=== PATIENT | female | born 1940 | race Caucasian/White ===

== ENCOUNTER 2018-04-16 13:41 | Outpatient (CLI) | payer MEDICARE, BC, SELFPAY | END 2018-04-16 13:42 | PROVIDERS: PCP Family Medicine; Visit Provider Anesthesiology Pain Medicine | DX: M96.1 Postlaminectomy syndrome, not elsewhere classified (principal); G89.29 Other chronic pain; M54.5 Low back pain; Z96.89 Presence of other specified functional implants; Z79.891 Long term (current) use of opiate analgesic; Z93.3 Colostomy status | CPT/HCPCS: 62368 ==